=== PATIENT | female | born 1950 | race Caucasian/White ===

== ENCOUNTER 2023-04-11 12:04 | Inpatient (IN) | payer BC, OTHER ==
[2023-04-11] MEDS ORDERED: ACETAMINOPHEN 1000 MG/100 ML BAG IVPB ONE (12:30)
[2023-04-11] MEDS ORDERED: ACETAMINOPHEN INJECTION 100 ML IVPB ONE (12:33)
[2023-04-11 12:53] LABS: BASO % 0.3 % (0-2.0); HEMOGLOBIN 12.7 GM/dL (10.7-15.3); LYMPH % 17.7 % (8-40); MCH 30.8 pg (25.7-33.7); MCHC 34.3 g/dl (32.0-36.0); MEAN PLT VOLUME 8.4 fl (7.5-11.1); MONO % 4.5 % (3.8-10.2); NEUT % 77.5 % (42.8-82.8); PLATELET COUNT 250 10^3/uL (134-434); RBC 4.11 M/mm3 (3.60-5.2); RDW 12.9 % (11.6-15.6)
[2023-04-11 12:54] LABS: WHITE BLOOD COUNT 30.5 K/mm3 (4.0-10.0)
[2023-04-11] MEDS ORDERED: morphine CARPU-JECT 4 MG/1 ML DISP.SYRIN IVPUSH ONE (12:58)
[2023-04-11] MEDS ORDERED: morphine SULFATE 4 MG/ML VIAL ONE ×2 (13:06→13:16)
[2023-04-11 13:15] LABS: POTASSIUM 4.3 mmol/L (3.5-5.1)
[2023-04-11 13:18] LABS: CALCIUM 9.4 mg/dL (8.5-10.1)
[2023-04-11 13:21] LABS: ANISOCYTOSIS 1+; MACROCYTOSIS 1+
[2023-04-11 13:22] LABS: CREATININE 0.7 mg/dL (0.55-1.3)
[2023-04-11 13:24] LABS: BILIRUBIN,TOTAL 0.5 mg/dL (0.2-1); TOT PROT 7.2 g/dl (6.4-8.2)
[2023-04-11 13:58] LABS: HEMATOCRIT 36.1 % (32.4-45.2); HEMOGLOBIN 11.9 GM/dL (10.7-15.3); MCH 30.4 pg (25.7-33.7); MCHC 32.9 g/dl (32.0-36.0); MEAN CELL VOLUME 92.5 fl (80-96); MEAN PLT VOLUME 8.4 fl (7.5-11.1); PLATELET COUNT 238 10^3/uL (134-434); WHITE BLOOD COUNT 29.1 K/mm3 (4.0-10.0)
[2023-04-11 14:05] LABS: INR 1.07 (0.83-1.09); PROTHROMBIN TIME (PATIENT) 12.4 SEC (9.7-13.0)
[2023-04-11 14:08] LABS: ACTIVATED PTT 29.4 SECONDS (25.2-36.5)
[2023-04-11 14:53] LABS: EPI CELLS 2 /uL (0-25.1); HYALINE CASTS 0 /uL (0-3.1); PH,URINE 5.5 (5.0-8.0); URINE APPEARANCE CLEAR; URINE BACTERIA >9,000 /uL (0-1359); URINE BILIRUBIN NEGATIVE (NEGATIVE); URINE COLOR YELLOW; URINE GLUCOSE (UA) NEGATIVE (NEGATIVE); URINE KETONE 1+ (NEGATIVE); URINE LEUK ESTERASE 2+ (NEGATIVE); URINE NITRITE POSITIVE (NEGATIVE); URINE PROTEIN NEGATIVE (NEGATIVE); URINE RBC 24 /uL (0-23.9); URINE UROBILINOGEN 0.2 mg/dL (0.2-1.0); URINE WBC 229 /uL (0-25.8)
[2023-04-11 14:56] LABS: ANISOCYTOSIS 1+; MACROCYTOSIS 1+
[2023-04-11] MEDS ORDERED: KETAMINE HCL 200 MG/20 ML VIAL IVPUSH ONE (15:11)
[2023-04-11] MEDS ORDERED: PROPOFOL 200 MG/20 ML VIAL IVPUSH ONE (15:12)
[2023-04-11] MEDS ORDERED: KETAMINE HCL 200 MG/20 ML VIAL ONE (15:17)
[2023-04-11] MEDS ORDERED: PROPOFOL 20 ML ONE (15:19)
[2023-04-11] MEDS ORDERED: CEFTRIAXONE 1,000 MG in DEXTROSE 5%-WATER - 50 ML IVPB ONE (15:39)
[2023-04-11] MEDS ORDERED: CEFTRIAXONE 1 GM/50 ML BAG ONE (15:42)
[2023-04-11] MEDS ORDERED: ACETAMINOPHEN 500 MG TABLET (FP) PO PRN (17:43)
[2023-04-12] MEDS: KETOROLAC TROMETHAMINE 15 MG/ML VIAL IVPUSH PRN ×2 (01:52→16:35)
[2023-04-12 08:48] LABS: HEMATOCRIT 33.4 % (32.4-45.2); HEMOGLOBIN 11.5 GM/dL (10.7-15.3); MCH 31.1 pg (25.7-33.7); MCHC 34.5 g/dl (32.0-36.0); MEAN CELL VOLUME 90.3 fl (80-96); MEAN PLT VOLUME 8.6 fl (7.5-11.1); PLATELET COUNT 226 10^3/uL (134-434); RDW 13.1 % (11.6-15.6)
[2023-04-12 09:18] LABS: POTASSIUM 4.2 mmol/L (3.5-5.1)
[2023-04-12 09:19] LABS: CALCIUM 8.2 mg/dL (8.5-10.1)
[2023-04-12 09:20] LABS: BLOOD UREA NITROGEN 10.6 mg/dL (7-18)
[2023-04-12 09:23] LABS: ANISOCYTOSIS 0; CREATININE 0.6 mg/dL (0.55-1.3); HELMET CELLS 0; HOWELL-JOLLY BODIES 0; MACROCYTOSIS 0; OVALOCYTE 0; ROULEAU 0; SICKELED CELLS 0; TARGET CELLS 0; TEAR DROP CELLS 0; TOXIC GRANULATION 0
[2023-04-12] MEDS: DEXTROSE 5%-WATER - 1,000 ML IV SCH (10:46)
[2023-04-12] MEDS: LACTOBACILLUS ACIDOPHILUS 1 TABLET PO SCH (10:48)
[2023-04-12] MEDS: CEFTRIAXONE 1 GM in DEXTROSE 5%-WATER - 50 ML IVPB SCH (10:48)
[2023-04-12 16:11] VITALS: BMI 18.8
[2023-04-12] MEDS ORDERED: HEPARIN NA (PORCINE) 5,000 UNITS/ML 1ML VIAL SQ SCH (22:00)
[2023-04-13] MEDS: DEXTROSE 5%-WATER - 1,000 ML IV SCH (08:59)
[2023-04-13] MEDS: CEFTRIAXONE 1 GM in DEXTROSE 5%-WATER - 50 ML IVPB SCH (08:59)
[2023-04-13] MEDS: LACTOBACILLUS ACIDOPHILUS 1 TABLET PO SCH (09:00)
[2023-04-13 09:56] LABS: HEMOGLOBIN 11.8 GM/dL (10.7-15.3); MCH 31.3 pg (25.7-33.7); MCHC 33.8 g/dl (32.0-36.0); MEAN CELL VOLUME 92.8 fl (80-96); MEAN PLT VOLUME 8.2 fl (7.5-11.1); PLATELET COUNT 235 10^3/uL (134-434); RBC 3.78 M/mm3 (3.60-5.2); RDW 12.8 % (11.6-15.6); WHITE BLOOD COUNT 15.6 K/mm3 (4.0-10.0)
[2023-04-13] MEDS ORDERED: BUPIVACAINE HCL/PF 0.5% (5MG/ML) 10 ML VIAL ONE (12:14)
[2023-04-13] MEDS ORDERED: BUPIVACAINE LIPOSOME/PF (EXPAREL) 266 MG/20 ML VIAL ONE (12:14)
[2023-04-13] MEDS ORDERED: MIDAZOLAM HCL 2 MG/2 ML SINGLE DOSE VIAL ONE ×2 (12:39)
[2023-04-13] MEDS ORDERED: PROPOFOL 20 ML ONE ×2 (12:39)
[2023-04-13] MEDS ORDERED: LIDOCAINE HCL/PF 2% SDV 5ML VIAL ONE (12:40)
[2023-04-13] MEDS ORDERED: DEXAMETHASONE SOD PHOSPHATE 4 MG/1 ML VIAL ONE ×2 (12:40→13:20)
[2023-04-13] MEDS ORDERED: ROPIVACAINE HCL 0.5% 30ML VIAL ONE (13:00)
[2023-04-13] MEDS ORDERED: ONDANSETRON 4 MG/2 ML VIAL ONE (13:20)
[2023-04-13] MEDS ORDERED: ceFAZolin SODIUM 1 GM VIAL ONE (13:20)
[2023-04-13] MEDS ORDERED: ceFAZolin SODIUM 1 GM VIAL IVPB ONE (13:20)
[2023-04-13] MEDS ORDERED: ePHEDrine SULFATE 50 MG/1 ML AMPULE ONE (13:58)
[2023-04-13] MEDS ORDERED: LACTATED RINGERS SOLUTION 1,000 ML IV SCH ×2 (14:30→14:37)
[2023-04-13] MEDS ORDERED: ONDANSETRON 4 MG/2 ML VIAL IVPUSH PRN (14:36)
[2023-04-13] MEDS ORDERED: ACETAMINOPHEN 500 MG TABLET (FP) PO PRN (14:37)
[2023-04-13] MEDS ORDERED: CEFAZOLIN 2 GM in DEXTROSE 5%-WATER - 50 ML IVPB SCH (22:00)
[2023-04-13] MEDS ORDERED: CEFAZOLIN SODIUM 2 GM in DEXTROSE 5%-WATER 100 ML IVPB SCH (22:00)
[2023-04-13] MEDS: CEFAZOLIN SODIUM 2 GM in DEXTROSE 5%-WATER 100 ML IVPB SCH (22:25)
[2023-04-14] MEDS: CEFAZOLIN SODIUM 2 GM in DEXTROSE 5%-WATER 100 ML IVPB SCH (06:47)
[2023-04-14 09:16] LABS: HEMATOCRIT 32.7 % (32.4-45.2); HEMOGLOBIN 10.9 GM/dL (10.7-15.3); MCHC 33.5 g/dl (32.0-36.0); MEAN CELL VOLUME 92.5 fl (80-96); PLATELET COUNT 244 10^3/uL (134-434); RBC 3.53 M/mm3 (3.60-5.2); RDW 12.6 % (11.6-15.6); WHITE BLOOD COUNT 20.6 K/mm3 (4.0-10.0)
[2023-04-14 09:41] LABS: POTASSIUM 3.6 mmol/L (3.5-5.1)
[2023-04-14 09:47] LABS: CALCIUM 8.9 mg/dL (8.5-10.1)
[2023-04-14 09:51] LABS: BLOOD UREA NITROGEN 9.7 mg/dL (7-18); MAGNESIUM 1.9 mg/dL (1.8-2.4)
[2023-04-14 09:57] LABS: CREATININE 0.8 mg/dL (0.55-1.3)
[2023-04-14 09:59] LABS: TOT PROT 6.2 g/dl (6.4-8.2)
[2023-04-14] MEDS ORDERED: ASPIRIN 325 MG TABLET PO SCH (10:00)
[2023-04-14] MEDS ORDERED: LACTOBACILLUS ACIDOPHILUS 1 TABLET PO SCH (10:00)
[2023-04-14] MEDS ORDERED: CEFTRIAXONE 1 GM in DEXTROSE 5%-WATER - 50 ML IVPB SCH (10:00)
[2023-04-14 10:01] LABS: BILIRUBIN,TOTAL 0.3 mg/dL (0.2-1)
[2023-04-14 10:02] LABS: ALBUMIN 3.1 g/dl (3.4-5.0)
[2023-04-14 10:07] LABS: ANISOCYTOSIS 0; HELMET CELLS 0; HOWELL-JOLLY BODIES 0; MACROCYTOSIS 0; OVALOCYTE 0; ROULEAU 0; SICKELED CELLS 0; TARGET CELLS 0; TEAR DROP CELLS 0; TOXIC GRANULATION 0
[2023-04-14] MEDS: POLYETHYLENE GLYCOL (HEALTHYLAX) 3350 17 GM PACKET PO SCH (10:55)
[2023-04-14] MEDS: ASPIRIN 325 MG TABLET PO SCH (10:55)
[2023-04-14] MEDS: LACTOBACILLUS ACIDOPHILUS 1 TABLET PO SCH (10:56)
[2023-04-14] MEDS: MULTIVITAMINS (DAILY MVI) TABLET (FP) PO SCH (12:47)
[2023-04-14] MEDS: CALCIUM (OYSTER SHELL) 500 MG TABLET (FP) PO SCH ×2 (14:46→22:22)
[2023-04-15] MEDS: CALCIUM (OYSTER SHELL) 500 MG TABLET (FP) PO SCH ×3 (05:45→21:22)
[2023-04-15] MEDS ORDERED: oxyCODONE HCL 5 MG TABLET PO PRN (07:36)
[2023-04-15] MEDS: MULTIVITAMINS (DAILY MVI) TABLET (FP) PO SCH (09:42)
[2023-04-15] MEDS: LACTOBACILLUS ACIDOPHILUS 1 TABLET PO SCH (09:42)
[2023-04-15] MEDS: CEPHALEXIN MONOHYDRATE 500 MG CAPSULE (UD) PO SCH ×3 (09:42→18:07)
[2023-04-15] MEDS: ASPIRIN 325 MG TABLET PO SCH ×2 (09:43→09:50)
[2023-04-15] MEDS: POLYETHYLENE GLYCOL (HEALTHYLAX) 3350 17 GM PACKET PO SCH (09:43)
[2023-04-15 10:47] LABS: BASO % 0.5 % (0-2.0); EOS % 1.3 % (0-4.5); HEMATOCRIT 31.3 % (32.4-45.2); HEMOGLOBIN 10.8 GM/dL (10.7-15.3); LYMPH % 40.8 % (8-40); MCH 31.5 pg (25.7-33.7); MCHC 34.4 g/dl (32.0-36.0); MEAN CELL VOLUME 91.5 fl (80-96); MEAN PLT VOLUME 8.3 fl (7.5-11.1); MONO % 5.5 % (3.8-10.2); NEUT % 51.9 % (42.8-82.8); PLATELET COUNT 275 10^3/uL (134-434); RBC 3.42 M/mm3 (3.60-5.2); RDW 13.1 % (11.6-15.6); WHITE BLOOD COUNT 14.8 K/mm3 (4.0-10.0)
[2023-04-15 11:08] LABS: POTASSIUM 3.9 mmol/L (3.5-5.1)
[2023-04-15 11:16] LABS: ALBUMIN 3.2 g/dl (3.4-5.0); CALCIUM 8.6 mg/dL (8.5-10.1)
[2023-04-15 11:17] LABS: BLOOD UREA NITROGEN 10.3 mg/dL (7-18); MAGNESIUM 1.9 mg/dL (1.8-2.4)
[2023-04-15 11:19] LABS: CREATININE 0.7 mg/dL (0.55-1.3)
[2023-04-15 11:21] LABS: BILIRUBIN,TOTAL 0.6 mg/dL (0.2-1); TOT PROT 6.2 g/dl (6.4-8.2)
[2023-04-15] MEDS: DOCUSATE SODIUM 100 MG CAPSULE (FP) PO SCH (21:22)
[2023-04-16] MEDS: CALCIUM (OYSTER SHELL) 500 MG TABLET (FP) PO SCH ×3 (05:24→21:21)
[2023-04-16] MEDS: CEPHALEXIN MONOHYDRATE 500 MG CAPSULE (UD) PO SCH ×3 (05:24→18:02)
[2023-04-16] MEDS: ASPIRIN 325 MG TABLET PO SCH ×2 (09:42→09:46)
[2023-04-16] MEDS: LACTOBACILLUS ACIDOPHILUS 1 TABLET PO SCH (09:42)
[2023-04-16] MEDS: MULTIVITAMINS (DAILY MVI) TABLET (FP) PO SCH (09:43)
[2023-04-16] MEDS: POLYETHYLENE GLYCOL (HEALTHYLAX) 3350 17 GM PACKET PO SCH (09:43)
[2023-04-16 09:55] LABS: BASO % 0.7 % (0-2.0); EOS % 1.7 % (0-4.5); HEMOGLOBIN 11.8 GM/dL (10.7-15.3); LYMPH % 45.4 % (8-40); MCHC 33.6 g/dl (32.0-36.0); MEAN CELL VOLUME 92.4 fl (80-96); MEAN PLT VOLUME 8.3 fl (7.5-11.1); MONO % 4.2 % (3.8-10.2); PLATELET COUNT 313 10^3/uL (134-434); RBC 3.79 M/mm3 (3.60-5.2); RDW 12.5 % (11.6-15.6)
[2023-04-16 10:03] LABS: POTASSIUM 3.9 mmol/L (3.5-5.1)
[2023-04-16 10:10] LABS: CALCIUM 9.3 mg/dL (8.5-10.1)
[2023-04-16 10:11] LABS: ALBUMIN 3.3 g/dl (3.4-5.0); BLOOD UREA NITROGEN 11.1 mg/dL (7-18); MAGNESIUM 2.1 mg/dL (1.8-2.4)
[2023-04-16 10:40] LABS: CREATININE 0.6 mg/dL (0.55-1.3)
[2023-04-16 10:42] LABS: BILIRUBIN,TOTAL 0.5 mg/dL (0.2-1); TOT PROT 6.7 g/dl (6.4-8.2)
[2023-04-16] MEDS: DOCUSATE SODIUM 100 MG CAPSULE (FP) PO SCH (21:21)
[2023-04-17] MEDS: CALCIUM (OYSTER SHELL) 500 MG TABLET (FP) PO SCH ×3 (06:29→22:44)
[2023-04-17] MEDS: CEPHALEXIN MONOHYDRATE 500 MG CAPSULE (UD) PO SCH ×4 (06:29→17:04)
[2023-04-17] MEDS: ASPIRIN 325 MG TABLET PO SCH (09:40)
[2023-04-17] MEDS: LACTOBACILLUS ACIDOPHILUS 1 TABLET PO SCH (09:40)
[2023-04-17] MEDS: POLYETHYLENE GLYCOL (HEALTHYLAX) 3350 17 GM PACKET PO SCH (09:40)
[2023-04-17] MEDS: MULTIVITAMINS (DAILY MVI) TABLET (FP) PO SCH (09:41)
[2023-04-17] MEDS: DOCUSATE SODIUM 100 MG CAPSULE (FP) PO SCH (22:44)
[2023-04-18] MEDS: CEPHALEXIN MONOHYDRATE 500 MG CAPSULE (UD) PO SCH ×4 (00:28→17:24)
[2023-04-18] MEDS: CALCIUM (OYSTER SHELL) 500 MG TABLET (FP) PO SCH ×3 (05:34→22:07)
[2023-04-18] MEDS: POLYETHYLENE GLYCOL (HEALTHYLAX) 3350 17 GM PACKET PO SCH (09:57)
[2023-04-18] MEDS: LACTOBACILLUS ACIDOPHILUS 1 TABLET PO SCH (09:57)
[2023-04-18] MEDS: ASPIRIN 325 MG TABLET PO SCH (09:59)
[2023-04-18] MEDS: MULTIVITAMINS (DAILY MVI) TABLET (FP) PO SCH (09:59)
[2023-04-18] MEDS: DOCUSATE SODIUM 100 MG CAPSULE (FP) PO SCH (22:07)
[2023-04-19] MEDS: CEPHALEXIN MONOHYDRATE 500 MG CAPSULE (UD) PO SCH ×4 (00:46→17:20)
[2023-04-19] MEDS: CALCIUM (OYSTER SHELL) 500 MG TABLET (FP) PO SCH ×3 (06:33→22:52)
[2023-04-19 08:33] LABS: BASO % 0.9 % (0-2.0); EOS % 3.1 % (0-4.5); HEMATOCRIT 33.7 % (32.4-45.2); HEMOGLOBIN 11.2 GM/dL (10.7-15.3); LYMPH % 47.5 % (8-40); MCH 30.7 pg (25.7-33.7); MCHC 33.3 g/dl (32.0-36.0); MEAN CELL VOLUME 92.2 fl (80-96); MEAN PLT VOLUME 7.9 fl (7.5-11.1); MONO % 4.8 % (3.8-10.2); NEUT % 43.7 % (42.8-82.8); PLATELET COUNT 410 10^3/uL (134-434); RBC 3.66 M/mm3 (3.60-5.2); RDW 12.5 % (11.6-15.6); WHITE BLOOD COUNT 13.5 K/mm3 (4.0-10.0)
[2023-04-19 09:14] LABS: POTASSIUM 4.8 mmol/L (3.5-5.1)
[2023-04-19 09:18] LABS: CALCIUM 8.4 mg/dL (8.5-10.1)
[2023-04-19 09:19] LABS: BLOOD UREA NITROGEN 13.2 mg/dL (7-18); MAGNESIUM 2.1 mg/dL (1.8-2.4)
[2023-04-19 09:21] LABS: CREATININE 0.6 mg/dL (0.55-1.3)
[2023-04-19 09:23] LABS: BILIRUBIN,TOTAL 0.3 mg/dL (0.2-1); TOT PROT 6.1 g/dl (6.4-8.2)
[2023-04-19] MEDS: ASPIRIN 325 MG TABLET PO SCH (09:27)
[2023-04-19] MEDS: POLYETHYLENE GLYCOL (HEALTHYLAX) 3350 17 GM PACKET PO SCH (09:27)
[2023-04-19] MEDS: MULTIVITAMINS (DAILY MVI) TABLET (FP) PO SCH (09:27)
[2023-04-19] MEDS: LACTOBACILLUS ACIDOPHILUS 1 TABLET PO SCH (09:27)
[2023-04-19] MEDS: DOCUSATE SODIUM 100 MG CAPSULE (FP) PO SCH (22:51)
[2023-04-20] MEDS: CEPHALEXIN MONOHYDRATE 500 MG CAPSULE (UD) PO SCH ×4 (00:20→17:32)
[2023-04-20] MEDS: CALCIUM (OYSTER SHELL) 500 MG TABLET (FP) PO SCH ×3 (07:47→21:30)
[2023-04-20 09:14] LABS: BASO % 0.8 % (0-2.0); EOS % 1.9 % (0-4.5); HEMATOCRIT 35.1 % (32.4-45.2); HEMOGLOBIN 11.4 GM/dL (10.7-15.3); LYMPH % 47.3 % (8-40); MCH 30.2 pg (25.7-33.7); MCHC 32.5 g/dl (32.0-36.0); MEAN CELL VOLUME 92.8 fl (80-96); MEAN PLT VOLUME 7.6 fl (7.5-11.1); MONO % 2.5 % (3.8-10.2); NEUT % 47.5 % (42.8-82.8); PLATELET COUNT 461 10^3/uL (134-434); RBC 3.78 M/mm3 (3.60-5.2); RDW 12.8 % (11.6-15.6); WHITE BLOOD COUNT 15.5 K/mm3 (4.0-10.0)
[2023-04-20 09:30] LABS: POTASSIUM 4.2 mmol/L (3.5-5.1)
[2023-04-20 09:39] LABS: CALCIUM 8.6 mg/dL (8.5-10.1)
[2023-04-20 09:40] LABS: ALBUMIN 3.1 g/dl (3.4-5.0); CREATININE 0.6 mg/dL (0.55-1.3); MAGNESIUM 2.2 mg/dL (1.8-2.4)
[2023-04-20 09:44] LABS: BILIRUBIN,TOTAL 0.6 mg/dL (0.2-1); TOT PROT 6.4 g/dl (6.4-8.2)
[2023-04-20] MEDS: ASPIRIN 325 MG TABLET PO SCH (09:57)
[2023-04-20] MEDS: LACTOBACILLUS ACIDOPHILUS 1 TABLET PO SCH (09:57)
[2023-04-20] MEDS: MULTIVITAMINS (DAILY MVI) TABLET (FP) PO SCH (09:57)
[2023-04-20] MEDS: POLYETHYLENE GLYCOL (HEALTHYLAX) 3350 17 GM PACKET PO SCH (09:57)
[2023-04-20] MEDS: DOCUSATE SODIUM 100 MG CAPSULE (FP) PO SCH (21:30)
[2023-04-21] MEDS: CEPHALEXIN MONOHYDRATE 500 MG CAPSULE (UD) PO SCH ×3 (00:02→11:41)
[2023-04-21] MEDS: CALCIUM (OYSTER SHELL) 500 MG TABLET (FP) PO SCH (06:07)
[2023-04-21 08:36] VITALS: BP 115/64; PULSE 83; RESP 18; TEMP 97.6
[2023-04-21] MEDS: ASPIRIN 325 MG TABLET PO SCH (10:49)
[2023-04-21] MEDS: MULTIVITAMINS (DAILY MVI) TABLET (FP) PO SCH (10:50)
[2023-04-21] MEDS: POLYETHYLENE GLYCOL (HEALTHYLAX) 3350 17 GM PACKET PO SCH (10:50)
[2023-04-21] MEDS: LACTOBACILLUS ACIDOPHILUS 1 TABLET PO SCH (10:50)
== END 2023-04-21 12:37 | DRG 493 ==
LOC: JER 12:04 → JERBED 16:05 → J7W 20:03
PROVIDERS: ADMIT Internal Medicine; ATTEND Nurse Practitioner Family
PROC: 0QSJXZZ Reposition Right Fibula, External Approach (ICD-10-PCS; 2023-04-11)
PROC: 0QSGXZZ Reposition Right Tibia, External Approach (ICD-10-PCS; 2023-04-11)
PROC: 0QSG04Z Reposition Right Tibia with Internal Fixation Device, Open Approach (ICD-10-PCS; 2023-04-13)
PROC: 0SSF04Z Reposition Right Ankle Joint with Internal Fixation Device, Open Approach (ICD-10-PCS; 2023-04-13)
PROC: 0QSJ04Z Reposition Right Fibula with Internal Fixation Device, Open Approach (ICD-10-PCS; principal; 2023-04-13 12:00)
DX: S82.841A Displaced bimalleolar fracture of right lower leg, initial encounter for closed fracture (principal); C91.10 Chronic lymphocytic leukemia of B-cell type not having achieved remission; N39.0 Urinary tract infection, site not specified; E44.0 Moderate protein-calorie malnutrition; Z68.1 Body mass index [BMI] 19.9 or less, adult; G62.9 Polyneuropathy, unspecified; B96.20 Unspecified Escherichia coli [E. coli] as the cause of diseases classified elsewhere; W18.39XA Other fall on same level, initial encounter; Y92.090 Kitchen in other non-institutional residence as the place of occurrence of the external cause; Z85.3 Personal history of malignant neoplasm of breast; D72.829 Elevated white blood cell count, unspecified
CPT/HCPCS: 36415; 71045-TC-FY; 73130-TC-RT-FY; 73590-TC-RT-FY; 73610-TC-RT-FY; 73630-TC-RT-FY; 76000-TC-FY; 80048; 80053; 81003; 83735; 85025; 85027; 85610; 85730; 87086; 87186; 87635; 93005; 93010; 94010; 94760; 97116-GP; 97161-GP; 99285-25; C1713; J1644